=== PATIENT | female | born 1940 | race Caucasian/White ===

== ENCOUNTER → 2019-03-26 | Outpatient (CLI) | payer OTHER | END | disposition home or self-care (01) | LOC: NUCLEAR 09:00 | DX: I65.29 Occlusion and stenosis of unspecified carotid artery (principal) ==

== ENCOUNTER 2020-04-07 10:09 | Outpatient (CLI) | payer OTHER | END 2020-04-07 10:22 | disposition home or self-care (01) | LOC: NUCLEAR 10:09 | PROVIDERS: ATTEND Physical Medicine & Rehabilitation | DX: I65.23 Occlusion and stenosis of bilateral carotid arteries (principal) ==

== ENCOUNTER 2020-11-01 11:45 | Emergency (ER) | payer OTHER ==
[~2020-11-01] VITALS: Ht 165.1 cm; Wt 50.8 kg
[2020-11-01] MEDS ORDERED: SYNTHROID88 MCG (12:31)
[2020-11-01] MEDS ORDERED: CRESTOR5 MG (12:32)
[2020-11-01] MEDS ORDERED: PREMPRO 0.625-1 EACH (12:32)
== END 2020-11-01 20:16 | disposition home or self-care (01) ==
LOC: ER 11:45
DX: M51.36 Other intervertebral disc degeneration, lumbar region (principal)

== ENCOUNTER 2020-11-22 11:20 | Outpatient (CLI) | payer OTHER ==
[~2020-11-22 11:20] MED LIST: CRESTOR5 MG; PREMPRO 0.625-1 EACH; SYNTHROID88 MCG
== END 2020-11-22 11:25 | disposition home or self-care (01) ==
LOC: LAB 11:20
PROVIDERS: ATTEND Radiology Diagnostic Radiology
DX: N20.0 Calculus of kidney (principal)

== ENCOUNTER 2020-11-25 09:41 | Outpatient (CLI) | payer OTHER | END 2020-11-25 09:46 | disposition home or self-care (01) | LOC: TOM 09:41 | PROVIDERS: ATTEND Specialist | DX: I61.3 Nontraumatic intracerebral hemorrhage in brain stem (principal); R10.9 Unspecified abdominal pain | CPT/HCPCS: 70450; 74178; Q9965 ==

== ENCOUNTER 2022-04-27 07:58 | Outpatient (CLI) | payer OTHER | END 2022-04-27 07:59 | disposition home or self-care (01) | LOC: NUCLEAR 07:58 | PROVIDERS: ATTEND Internal Medicine Cardiovascular Disease | DX: I63.9 Cerebral infarction, unspecified (principal); Z88.2 Allergy status to sulfonamides; Z88.5 Allergy status to narcotic agent ==

== ENCOUNTER 2024-11-06 08:08 | Outpatient (CLI) | payer OTHER | END 2024-11-06 08:09 | disposition home or self-care (01) | LOC: NUCLEAR 08:08 | PROVIDERS: ATTEND Internal Medicine Cardiovascular Disease | DX: I63.9 Cerebral infarction, unspecified (principal) ==